=== PATIENT | male | born 1990 | race Caucasian/White ===

== ENCOUNTER 2021-07-08 15:11 | Emergency (ER) | payer OTHER ==
[~2021-07-08 15:11] MED LIST: ETODOLAC500 MG PO
[2021-07-08 17:53] LABS: CREATININE 1.12 mg/dL (0.67-1.17)
[2021-07-08 17:54] LABS: POTASSIUM 5.1 mmol/L (3.5-5.1)
[2021-07-08 18:46] LABS: ALBUMIN 3.9 g/dL (3.4-5.0); GLOBULIN (CALCULATION) 2.2 g/dL; TOTAL PROTEIN 6.1 g/dL (6.4-8.2)
[2021-07-08 18:48] LABS: BILIRUBIN - TOTAL 0.4 mg/dL (0.2-1.0)
[2021-07-08 18:59] LABS: BASOPHIL 0.3 % (0-2); EOSINOPHIL 0.3 % (0-5); HCT 43.2 % (42.0-52.0); HGB 15.2 g/dl (13.2-18.0); LYMPHOCYTE 17.3 % (15-48); MCH 30.9 pg (25.0-31.0); MCHC 35.2 g/dL (32.0-36.0); MCV 87.8 fL (78.0-100.0); MONOCYTE 5.4 % (0-12); MPV 9.9 fL (6.0-9.5); NEUTROPHIL 76.4 % (41-80); NRBC 0; RBC 4.92 M/uL (4.70-6.00); RDW 12.3 % (11.5-14.0)
[2021-07-08 19:03] LABS: PLT 82 K/uL (150-400)
[2021-07-08] MEDS ORDERED: IBUPROFEN800 MG PO (23:10)
[2021-07-08] MEDS ORDERED: DEXAMETHASONE 2M2 MG PO (23:10)
[2021-07-08] MEDS ORDERED: ONDANSETRON ODT4 MG SL (23:10)
[2021-07-08] MEDS ORDERED: HYDROCODONE-CH473 ML PO (23:10)
[2021-07-08] MEDS ORDERED: LEVAQUIN750 MG PO (23:10)
== END 2021-07-09 00:18 | disposition home or self-care (01) ==
LOC: FER 15:11
PROVIDERS: Emergency Medicine Emergency Medical Services
DX: U07.1 COVID-19 (principal); J12.82 Pneumonia due to coronavirus disease 2019; I10 Essential (primary) hypertension; Z88.1 Allergy status to other antibiotic agents
CPT/HCPCS: 36415; 36600; 71045; 80053; 82803; 84484; 85025; 85379; 93005; 94640; 94664; J0696; J1885; J2405; J7030